=== PATIENT | female | born 1970 | race African-American/Black ===

== ENCOUNTER → 2020-05-29 | Outpatient (CLI) | payer OTHER ==
--- NOTE | 2020-05-29 14:23 | RAD ---
EXAM: Lumbar spine, 2 views. HISTORY: Slipped disc. Pain. COMPARISON: None. FINDINGS: 2 views of the lumbar spine are obtained. There is no significant listhesis. The vertebral bodies are normal in height and the disc spaces are preserved. There is minimal endplate remodeling a t the mid lumbar levels. There is facet arthropathy at the lumbosacral junction. IMPRESSION: Minimal to mild degenerative change involving the lumbar spine. No acute osseous finding. Electronically signed by: Jessie Wan MD (05/29/2020 2:20 PM) [facility]
--- NOTE | 2020-05-29 16:45 | RAD ---
Chest radiograph 05/29/2020 11:16 AM INDICATION: History of asthma COMPARISON: None available TECHNIQUE: Frontal and lateral views of the chest are provided. FINDINGS: The cardiomediastinal silhouette is within normal limits. There are no pleural effusions. There is no pulmonary vascular congestion. There is no pneumothorax. Architectural distortion identified within the upper lobes bilaterally suggestive of pleural parenchy mal scarring. No focal airspace consolidation is identified. No significant osseous abnormality is identified. IMPRESSION: Architectural distortion of the upper lobes may reflect pleural parenchymal scarring, likely associat ed with inhalational disorder, sarcoidosis or silicosis versus COPD. Further evaluation with CT chest could be of benefit to assess for neoplastic process. Electronically signed by: Nathaly Delgado MD (05/29/2020 4:43 PM) [id number]
== END ==
LOC: RAD 11:01
PROVIDERS: ATTEND Anesthesiology Pain Medicine
DX: Z02.71 Encounter for disability determination (principal); M47.816 Spondylosis without myelopathy or radiculopathy, lumbar region; R06.02 Shortness of breath; Z82.5 Family history of asthma and other chronic lower respiratory diseases
CPT/HCPCS: 71046; 72100

== ENCOUNTER → 2020-09-09 | Outpatient (CLI) | payer OTHER | LOC: PF 09:35 | PROVIDERS: ATTEND Family Medicine | DX: Z02.71 Encounter for disability determination (principal); J45.909 Unspecified asthma, uncomplicated | CPT/HCPCS: 94060; 94640; 94729; 94664 ==